=== PATIENT | female | born 1945 | race Caucasian/White ===

== ENCOUNTER → 2016-12-05 | Day surgery (SDC) | payer BC, MEDICARE ==
[~2016-12-05] MED LIST: ACET-704 PO; ASPI-482 PO; ATROVENT HFA12.9 GM IH; CALC-98 PO; CALC300T5 PO; ERYT250T14 PO; ESTR0.3T PO; HYDROmorphone 2 MG/ML VIAL IV PRN; IV RINGERS,LACTATED 1000ML 1,000 ML IV SCH; LIDOCAINE 1% 1 ML SYRINGE. ID PRN; LIDOCAINE 2% PF Vial for OR 5 ML VIAL. ONE; LOSA25TA4 PO; LOSA50TA2 PO; MORPHINE SULFATE 2 MG/ML DISP.SYRIN. IV PRN; MULT-208 PO; OMEP20TA PO; ONDA4TAB10 PO; ONDANSETRON PF 4 MG/2 ML VIAL. IV PRN; PROCHLORPERAZINE 10 MG/2 ML VIAL. IV PRN; PROPOFOL 20 ML IV ONE; PROVENTIL HFA6.7 GM IH; QUIN300T3 PO; THYR60TA PO; THYR90TA PO; fentaNYL PF VIAL 100 MCG/2 ML VIAL IV PRN
[2016-12-05 14:42] VITALS: BP 110/60
== END | disposition home or self-care (01) ==
LOC: ENDOS 12:30
PROVIDERS: ATTEND Internal Medicine Gastroenterology
DX: Z12.11 Encounter for screening for malignant neoplasm of colon (principal); K57.30 Diverticulosis of large intestine without perforation or abscess without bleeding; K64.0 First degree hemorrhoids; J45.909 Unspecified asthma, uncomplicated; M19.90 Unspecified osteoarthritis, unspecified site; E03.9 Hypothyroidism, unspecified; Z86.39 Personal history of other endocrine, nutritional and metabolic disease; Z90.710 Acquired absence of both cervix and uterus
CPT/HCPCS: 45378; J2704

== ENCOUNTER 2017-01-26 15:44 | Emergency (ER) | payer BC, MEDICARE ==
[~2017-01-26] VITALS: Ht 175.3 cm; Wt 71.7 kg
[~2017-01-26 15:44] MED LIST changes: -HYDROmorphone 2 MG/ML VIAL IV PRN; -IV RINGERS,LACTATED 1000ML 1,000 ML IV SCH; -LIDOCAINE 1% 1 ML SYRINGE. ID PRN; -LIDOCAINE 2% PF Vial for OR 5 ML VIAL. ONE; -MORPHINE SULFATE 2 MG/ML DISP.SYRIN. IV PRN; -OMEP20TA PO; +OMEP20TA8 PO; -ONDANSETRON PF 4 MG/2 ML VIAL. IV PRN; -PROCHLORPERAZINE 10 MG/2 ML VIAL. IV PRN; -PROPOFOL 20 ML IV ONE; -fentaNYL PF VIAL 100 MCG/2 ML VIAL IV PRN
[2017-01-26 15:50] VITALS: BP 199/91
[2017-01-26] MEDS ORDERED: DIPHTH,PERTUSS(ACELL),TET TOX 0.5 ML DISP.SYRIN. VAX IM ONE (16:00)
[2017-01-26] MEDS ORDERED: ACETAMINOPHEN 500 MG TABLET PO ONE (16:00)
--- NOTE | 2017-01-26 16:04 | PHYS DOC ---
Past Medical History Past Medical History: Asthma, Hypertension, Hypothyroid, Other Additional Past Medical Histor: ulcers, H-pylori, MRSA (toes), tremors Past Surgical History: Appendectomy, Cholecystectomy, Other Additional Past Surgical Histo: andrew feet, mass on liver, andrew breast biopsy, saliva glands Alcohol Use: None Drug Use: None Adult General Chief Complaint Chief Complaint: MECHANICAL FALL HPI HPI Patient is a 71 year old female with history of hypertension, hypothyroidism, asthma, who presents with mild bilateral low back pain, bilateral ankle pain, right foot pain, and right knee pain that began today after she fell. Patient states she accidentally slipped and fell. Patient denies any loss of consciousness. Denies hitting her head on the ground. Review of Systems Review of Systems Constitutional: Denies fever or chills [] Eyes: Denies change in visual acuity, redness, or eye pain [] HENT: Denies nasal congestion or sore throat [] Respiratory: Denies cough or shortness of breath [] Cardiovascular: No additional information not addressed in HPI [] GI: Denies abdominal pain, nausea, vomiting, bloody stools or diarrhea [] : Denies dysuria or hematuria [] Musculoskeletal:mild bilateral low back pain, bilateral ankle pain, right foot pain, and right knee pain Integument: Denies rash or skin lesions [] Neurologic: Denies headache, focal weakness or sensory changes [] Endocrine: Denies polyuria or polydipsia [] Current Medications Current Medications Current Medications Medications (Trade) Dose Ordered Sig/Maya Start Time Stop Time Status Last Admin Dose Admin Acetaminophen (Tylenol) 500 mg 1X ONCE 01/26/17 16:00 01/26/17 16:01 DC 01/26/17 16:19 500 MG Diphtheria/ Tetanus/Acell Pertussis (Boostrix) 0.5 ml ONCE ONCE 01/26/17 16:00 01/26/17 16:01 DC 01/26/17 16:20 0.5 ML Allergies Allergies Allergies Coded Allergies Type Severity Reaction Last Updated Verified Iodinated Contrast- Oral and IV Dye Allergy Severe swollen eye 12/05/16 Yes propoxyphene Allergy Severe nose bleed 12/05/16 Yes Sulfa (Sulfonamide Antibiotics) Allergy Intermediate 12/05/16 Yes adhesive tape Allergy Intermediate 12/05/16 Yes clindamycin Allergy Intermediate rash 12/04/16 Yes hydrocodone Allergy Intermediate 11/19/16 Yes morphine Allergy Intermediate hallucinations 12/04/16 Yes oxycodone Allergy Intermediate 11/18/16 Yes pneumococcal vaccine Allergy Intermediate itching 11/19/16 Yes propafenone Allergy Intermediate 11/18/16 Yes sotalol Allergy Intermediate 11/18/16 Yes Physical Exam Physical Exam Constitutional: Well developed, well nourished, no acute distress, non-toxic appearance. [] HENT: Normocephalic, atraumatic, bilateral external ears normal, oropharynx moist, no oral exudates, nose normal. [] Eyes: PERRLA, EOMI, conjunctiva normal, no discharge. [] Neck: Normal range of motion, no tenderness, supple, no stridor. [] Cardiovascular:Heart rate regular rhythm, no murmur [] Lungs & Thorax: Bilateral breath sounds clear to auscultation [] Abdomen: Bowel sounds normal, soft, no tenderness, no masses, no pulsatile masses. [] Skin: Warm, dry, no erythema, no rash. [] Back: Diffuse paraspinal muscle tenderness to bilateral low lumbar, no midline lumbar spine tenderness, no CVA tenderness. [] Extremities: Bilateral lower extremities with no obvious deformity. Slight bruising noted on the medial right knee. Tenderness on palpation of the medial right knee. Full range of motion to the right knee, negative Elvin sign and negative Andressa's sign negative anterior-posterior drawer sign to the right knee. Tenderness on palpation of the right lateral ankle as well as right lateral foot. Full range of motion to the right foot and ankle, cap refill <2 right pedal pulse. Cap refill less than 2 seconds the right lower extremity. Bruising noted on the left medial heel. Tenderness on palpation of the left lateral ankle. Full range of motion to the left foot and ankle. +2 left pedal pulse. Cap refill less than 2 seconds the left lower extremity. Neurologic: Alert and oriented X 3, normal motor function, normal sensory function, no focal deficits noted. [] Psychologic: Affect normal, judgement normal, mood normal. [] Current Patient Data Vital Signs Vital Signs Date Time Temp Pulse Resp B/P (MAP) Pulse Ox O2 Delivery O2 Flow Rate FiO2 01/26/17 15:50 97.9 72 18 96 Room Air 97.9 EKG EKG [] Radiology/Procedures Radiology/Procedures []PROCEDURE: ANKLE BILAT 3V Bilateral ankles 3 views each. History: Pain after a fall Right ankle 3 views were taken of the right ankle. There is no acute fracture or acute osseous abnormality. Left ankle 3 views were taken of the left ankle. There is no fracture or acute osseous abnormality. Impression: 1. No fracture noted in either ankle. PROCEDURE: FOOT RIGHT 3V Right foot 3 views. History: Pain after a fall 3 views were taken of the right foot. There has been a fusion of the first metatarsal phalangeal joint with screws and plates. There has been resection of the tuft of the distal phalanx of the great toe. There has been resection of the distal second through fifth metatarsals. There is no acute fracture. Impression: 1. Changes from previous surgeries. 2. No acute fracture noted in the right foot. DICTATED and SIGNED BY: TIMMY JACKSON MD DATE: 01/26/17 164 CC: TRINA MCFADDEN; JOHN KAISER APRN; NON,STAFF ~ DICTATED and SIGNED BY: TIMMY JACKSON MD DATE: 01/26/17 164 CC: TRINA MCFADDEN; JOHN KAISER APRN; NON,STAFF ~ PROCEDURE: KNEE RIGHT 4V Right knee 4 views. History: Right knee pain after a fall 4 views were taken of the right knee. There is mild spurring from arthritis. There is joint space narrowing and spurring in the patellofemoral compartment. There is no fracture or joint effusion. Impression: 1. Arthritis right knee especially in the patellofemoral compartment. 2. No acute fracture. DICTATED and SIGNED BY: TIMMY JACKSON MD DATE: 01/26/17 164 CC: TRINA MCFADDEN; JOHN KAISER APRN; NON,STAFF ~ PROCEDURE: LUMBAR SPINE 2-3V Lumbar spine 3 views. History: Pain after a fall 3 views were taken of the lumbar spine. Patient had previous cholecystectomy. Spine is in normal alignment. A fracture is not identified. Disc spaces are normal in height. There is mild lower lumbar facet arthritis. Impression: 1. No fracture is noted in the lumbar spine. DICTATED and SIGNED BY: TIMMY JACKSON MD DATE: 01/26/17 165 CC: TRINA MCFADDEN; JOHN KAISER APRN; NON,STAFF ~ Course & Med Decision Making Course & Med Decision Making Pertinent Labs and Imaging studies reviewed. (See chart for details) Patient is in the ED bilateral low back pain, bilateral ankle pain, right foot pain, and right knee pain that began today after she fell. Right knee x-rays, bilateral ankle x-rays, right foot x-rays, lumbar spine x- rays interpreted by radiologist were negative for any acute findings. Patient was discharged with cyclobenzaprine. Donny wrap was applied to the right knee and air cast to the right ankle by the ED RN, neurovascular exam done by me is normal, cap refill less than 2 seconds. Ice elevation encouraged. Tylenol for pain, prescription for cyclobenzaprine provided. Follow-up with orthopedic doctor provided in a week. Dragon Disclaimer Dragon Disclaimer This electronic medical record was generated, in whole or in part, using a voice recognition dictation system. Departure Departure Impression: Primary Impression: Fall from standing Additional Impressions: Lumbar contusion Ankle sprain Right foot sprain Disposition: HOME, SELF-CARE Condition: STABLE Referrals: NO PCP (PCP) RYLIE WALTON MD follow up in one week Patient Instructions: Ankle Sprain, Contusion, [id number], Fall Prevention and Home Safety Additional Instructions: You were seen after falling. Your xrays were negative for any acute findings. Please follow up with your doctor in 1-2 weeks or the provided orthopedic doctor Scripts Cyclobenzaprine Hcl (CYCLOBENZAPRINE HCL) 10 Mg Tablet 1 TAB PO TID, #30 TAB Prov: AWILDAJOHN GALDAMEZ 01/26/17 Problem Qualifiers Primary Impression: Fall from standing Encounter type: initial encounter Qualified Codes: W19.XXXA - Unspecified fall, initial encounter Additional Impressions: Lumbar contusion Encounter type: initial encounter Qualified Codes: S30.0XXA - Contusion of lower back and pelvis, initial encounter Ankle sprain Encounter type: initial encounter Involved ligament of ankle: unspecified ligament Laterality: right Qualified Codes: S93.401A - Sprain of unspecified ligament of right ankle, initial encounter Right foot sprain Encounter type: initial encounter Qualified Codes: S93.601A - Unspecified sprain of right foot, initial encounter JOHN KAISER DENICE Jan 26, 2017 16:04
--- NOTE | 2017-01-26 16:49 | RAD ---
Right knee 4 views. History: Right knee pain after a fall 4 views were taken of the right knee. There is mild spurring from arthritis. There is joint space narrowing and spurring in the patellofemoral compartment. There is no fracture or joint effusion. Impression: 1. Arthritis right knee especially in the patellofemoral compartment. 2. No acute fracture.
--- NOTE | 2017-01-26 16:51 | RAD ---
Right foot 3 views. History: Pain after a fall 3 views were taken of the right foot. There has been a fusion of the first metatarsal phalangeal joint with screws and plates. There has been resection of the tuft of the distal phalanx of the great toe. There has been resection of the distal second through fifth metatarsals. There is no acute fracture. Impression: 1. Changes from previous surgeries. 2. No acute fracture noted in the right foot.
--- NOTE | 2017-01-26 16:52 | RAD ---
Bilateral ankles 3 views each. History: Pain after a fall Right ankle 3 views were taken of the right ankle. There is no acute fracture or acute osseous abnormality. Left ankle 3 views were taken of the left ankle. There is no fracture or acute osseous abnormality. Impression: 1. No fracture noted in either ankle.
--- NOTE | 2017-01-26 16:54 | RAD ---
Lumbar spine 3 views. History: Pain after a fall 3 views were taken of the lumbar spine. Patient had previous cholecystectomy. Spine is in normal alignment. A fracture is not identified. Disc spaces are normal in height. There is mild lower lumbar facet arthritis. Impression: 1. No fracture is noted in the lumbar spine.
[2017-01-26] MEDS ORDERED: CYCL10TA2 PO (17:25)
== END 2017-01-26 17:23 | disposition home or self-care (01) ==
LOC: ER 15:44
DX: S30.0XXA Contusion of lower back and pelvis, initial encounter (principal); S93.601A Unspecified sprain of right foot, initial encounter; S93.401A Sprain of unspecified ligament of right ankle, initial encounter; S93.402A Sprain of unspecified ligament of left ankle, initial encounter; S80.01XA Contusion of right knee, initial encounter; J45.909 Unspecified asthma, uncomplicated; I10 Essential (primary) hypertension; E03.9 Hypothyroidism, unspecified; Z90.49 Acquired absence of other specified parts of digestive tract; Z91.041 Radiographic dye allergy status; Z88.8 Allergy status to other drugs, medicaments and biological substances; Z88.2 Allergy status to sulfonamides; Z88.1 Allergy status to other antibiotic agents; Z88.5 Allergy status to narcotic agent; Z88.7 Allergy status to serum and vaccine; Z91.048 Other nonmedicinal substance allergy status; W01.0XXA Fall on same level from slipping, tripping and stumbling without subsequent striking against object, initial encounter; Y93.89 Activity, other specified; Y92.89 Other specified places as the place of occurrence of the external cause; Y99.8 Other external cause status
CPT/HCPCS: 29515; 72100; 73564; 73610; 73630; 90471; 90715; 99284-25

== ENCOUNTER → 2017-02-27 | Outpatient (CLI) | payer BC, MEDICARE ==
[~2017-02-27] MED LIST changes: +CYCL10TA2 PO
--- NOTE | 2017-02-27 14:37 | KCIC ---
MRI study of the right knee without contrast Clinical indications: History of proximal tibial fracture and arthritis. Patient fell on January 26, 2017 and injured the right knee. Generalized right knee pain and swelling. TECHNIQUE: Noncontrast MRI sequences of the right knee were performed in all 3 planes. COMPARISON: None available. FINDINGS: The anterior and posterior cruciate ligaments are intact. The quadriceps and patellar tendons are intact. No articular surface tear of the medial or lateral meniscus is seen. The medial collateral ligament is intact and no meniscocapsular separation is seen. There is some mild edema around the medial collateral ligament which may be seen with a grade 1 ligament sprain. The lateral collateral ligament complex and popliteus tendon and iliotibial band are intact. No posterior lateral corner injury is seen. There is moderate chondromalacia of the weightbearing portion of the articular cartilage of the medial femoral condyle. There is mild degenerative spurring of the medial tibiofemoral joint compartment. There is moderate chondromalacia of the lateral tibiofemoral joint compartment. There is a focal cartilaginous defect of the weightbearing portion of the articular cartilage of the lateral femoral condyle. There is a cartilaginous defect of the nonweightbearing posterior aspect of the lateral femoral condyle. There is mild degenerative spurring of the lateral tibiofemoral joint compartment. Bone marrow edema of the posterior aspect of the lateral tibial plateau and the posterior aspect of the medial femoral epicondyle and medial femoral condyle and posterior aspect of the lateral femoral epicondyle and lateral femoral condyle is seen. These may represent bone contusions from a knee injury while the knee was in flexion. There is severe chondromalacia patellae and trochlear chondromalacia with [id number] interface involving the lateral patellofemoral joint compartment. There is mild degenerative subchondral bone marrow edema of the medial patellar facet and apex and the lateral portion of the trochlea. There is mild degenerative spurring of the patellofemoral joint compartment. The patella is normally aligned otherwise. The medial and lateral retinacular ligaments are intact. Small knee joint effusion is seen. No loose osteochondral body is evident. No distended Pleitez's cyst is seen. No muscle edema is seen. IMPRESSION: Bone contusions of the posterior aspect of the distal femur and the proximal tibia consistent with a right knee injury while the right knee was in flexion. No fracture line is seen. Chondromalacia and degenerative spurring of the medial and lateral tibiofemoral joint compartments. Severe chondromalacia patellae and trochlear chondromalacia resulting in [id number] interface of the lateral aspect of the patellofemoral joint compartment. Grade 1 medial collateral ligament sprain. Electronically signed by: Jose Smith MD (02/27/2017 2:33 PM) [id number]
== END | disposition home or self-care (01) ==
LOC: KCIC MRI 13:03
DX: S83.411A Sprain of medial collateral ligament of right knee, initial encounter (principal); S89.91XA Unspecified injury of right lower leg, initial encounter; M94.261 Chondromalacia, right knee; X58.XXXA Exposure to other specified factors, initial encounter; Y93.89 Activity, other specified; Y92.89 Other specified places as the place of occurrence of the external cause; Y99.8 Other external cause status
CPT/HCPCS: 73721